=== PATIENT | female | born 1985 | race Caucasian/White ===

== ENCOUNTER 2019-08-24 12:45 | Outpatient (CLI) | payer BC, SELFPAY ==
--- NOTE | ~2019-08-24 | MMUS_ITS ---
EXAMINATION: MM diagnostic darlene BI w alexis, US breast LT complete HISTORY: Left breast discharge. TECHNIQUE: Additional 3-D tomosynthesis images of the breasts were performed and synthetic 2-D images were generated. CAD analysis was submitted and interpreted. High resolution left breast ultrasound w as performed. COMPARISON: None FINDINGS: MAMMOGRAPHIC FINDINGS: Lung The breasts are heterogenously dense, which may obscure small masses. There are no suspicious ma sses, calcifications or architectural distortion in either breast to suggest malignancy. ULTRASOUND: Left breast ultrasound: There are multiple simple and complicated cysts of the left breast at 3:00, 9 cm from the nipple, the re is an oval circumscribed hypoechoic mass with enhanced through transmission measuring 7 mm greates t dimension, likely benign. At 3:00, 7 cm from the nipple, there is an oval hypoechoic mass measuring 5 mm with parallel orientation, no significant posterior features, and no internal vascularity, like ly benign. There is a small lipoma at 10:00. IMPRESSION: 1. Probable benign left breast masses by ultrasound. 2. Recommend 6 month follow-up left breast ultrasound. BI-RADS category 3, probably benign findings. Reviewed, dictated and finalized at location A. INGS INSPECTOR IMPRESSION: 1. Probable benign left breast masses by ultrasound. 2. Recommend 6 month follow-up left breast ultrasound. BI-RADS category 3, probably benign findings.
== END 2019-08-24 12:46 | disposition home or self-care (01) ==
PROVIDERS: Visit Provider Obstetrics & Gynecology
DX: N64.59 Other signs and symptoms in breast (principal)
CPT/HCPCS: 76641; 77062; 77066; G0279